=== PATIENT | female | born 1995 | race African-American/Black ===

== ENCOUNTER 2018-05-19 09:11 | Outpatient (CLI) | payer OTHER ==
--- NOTE | 2018-05-19 11:55 | ULT ---
ULTRASOUND OBSTETRICAL COMPLETE: DATE: 05-19-18 HISTORY: Z34.82 - encounter for supervision of other normal in 2nd trimester. Complete anatomy, s izes, and dates, cervical length. 22-year-old female FINDINGS: number: Garcia lie: Transverse with head to maternal left. Maternal cervix: 4.5 cm in length, closed. Placenta: Anterior. No placenta previa. Amniotic fluid volume: 11.5 cm heart rate: 146 bpm The following anatomy is visualized, with no evidence of anomalies: Head, lateral ventricles, cerebellum, nose and lips, spine, upper limbs, lower limbs, four chamber he art, umbilical cord, cord insertion, stomach, kidneys, and bladder. biometry: Head circumference (HC): 17.6 cm 20 w 1 d Biparietal diameter (BPD): 4.5 cm 19 w 5 d Abdominal circumference (AC): 15.8 cm 21 w 0 d Femur length (FL): 3.4 cm 20 w 4 d Average ultrasound age (AUA): 20 w 3 d Estimated date of delivery (MARISSA): 10-03-2018 Last menstrual period (LMP): 12-22-2017 Gestational age by LMP: 21 w 1 d Estimated weight (EFW): 368 g +/- 54 g (0 lb. 13 oz. +/- 2 oz.) IMPRESSION: 1. Live 2nd trimester intrauterine gestation. 2. Estimated gestational age of 20 weeks, 3 days. 3. Transverse lie. 4. No anatomical abnormalities. 5. Cervical length 4.5 cm. jn POS: [facility]
== END 2018-05-19 09:12 | disposition home or self-care (01) ==
LOC: BICULT 09:11
PROVIDERS: ATTEND Family Medicine
DX: Z34.82 Encounter for supervision of other normal pregnancy, second trimester (principal); Z3A.20 20 weeks gestation of pregnancy; O32.2XX0 Maternal care for transverse and oblique lie, not applicable or unspecified
CPT/HCPCS: 76805

== ENCOUNTER 2018-08-25 22:48 | Day surgery (SDC) | payer OTHER ==
[2018-08-25 23:21] VITALS: BMI 28.5
--- NOTE | 2018-08-26 00:47 | PRG ---
DATE OF SERVICE: 08/25/2018 PRIMARY OB: Dr. Silvestre Pearson. CHIEF COMPLAINT: Decreased movement. HISTORY OF PRESENT ILLNESS: The patient is a 23-year-old, G2, P1 female with an intrauterine at 35 weeks and a day, who is followed by Dr. Pearson in [place] and has presented for decreased movement today. The patient reports that she was recently diagnosed with gestational diabetes about a week ago and has been thus far diet controlled. She reports fasting blood sugar checked twice since the diagnosis, one at 126 and the other one at 188. She also reports her postprandials being in the 60s. The patient reports that she has been feeling her baby move much less than usual today and came in for evaluation. The patient denies any recent illness, fever, fall, headache, chest pain, or significant shortness of breath other than what she has attributed to the . Denies nausea, vomiting, diarrhea, constipation, hip problems, knee problems, or muscle weakness. Denies vaginal bleeding or leakage of fluid or uterine contractions. She denies urinary urgency or frequency. Denies hip problems, knee problems, or muscle weakness. PAST MEDICAL HISTORY: Anemia. PAST SURGICAL HISTORY: She has had her tonsils and adenoids removed. ALLERGIES: NO KNOWN DRUG ALLERGIES. MEDICATIONS: vitamins and iron. SOCIAL HISTORY: Denies drug, alcohol, or tobacco use. REVIEW OF SYSTEMS: Per HPI. OB LABORATORY DATA: Unavailable at time of dictation. PHYSICAL EXAMINATION: VITAL SIGNS: Blood pressure 100/59, pulse of 101, respiratory rate 18, saturating 98% on room air, temperature 98.4. GENERAL: She appears to be in no acute distress. She is alert, oriented, cooperative, and pleasant to interact with. HEENT: Head is normocephalic, atraumatic. LUNGS: Clear to auscultation bilaterally. HEART: Has regular rate and rhythm. ABDOMEN: Gravid, soft, nontender to palpation. EXTREMITIES: Nontender with 1+ edema bilaterally and symmetrical. : Has been deferred. LABORATORY DATA: heart tracing shows a baseline in the 140s with moderate long-term variability. Positive accelerations. No decelerations. Tocometer is not showing any significant contractions. ASSESSMENT AND PLAN: The patient is a 23-year-old G2, P1 female with an intrauterine at 35 weeks and a day, here for decreased movement. Fetus is reactive NST and category 1 tracing. Reassurance has been given to the patient. The patient is being discharged to home with instructions to follow up with her primary OB next Thursday as scheduled. Job ID: [id number]
== END 2018-08-25 23:40 | disposition home or self-care (01) ==
LOC: L&D/OP 22:48
PROVIDERS: ATTEND Family Medicine
DX: O36.8130 Decreased fetal movements, third trimester, not applicable or unspecified (principal); O24.410 Gestational diabetes mellitus in pregnancy, diet controlled; O99.013 Anemia complicating pregnancy, third trimester; D64.9 Anemia, unspecified; Z3A.35 35 weeks gestation of pregnancy
CPT/HCPCS: 99281

== ENCOUNTER 2018-09-15 00:09 | Inpatient (IN) | payer OTHER ==
[2018-09-15 00:40] VITALS: BMI 27.9
[2018-09-15] MEDS ORDERED: hydrALAZINE 20 MG/ML VIAL SLOW IVP PRN ×2 (02:58→12:16)
[2018-09-15] MEDS ORDERED: Acetaminophen 500 MG TAB PO PRN (02:58)
[2018-09-15] MEDS ORDERED: Ondansetron PF 4 MG/2 ML Vial IVP PRN ×4 (02:58→12:46)
[2018-09-15] MEDS ORDERED: Promethazine HCl 25 MG/ML VIAL IM PRN ×4 (02:58→12:46)
[2018-09-15] MEDS ORDERED: Misoprostol 200 MCG TAB RC PRN (03:00)
[2018-09-15] MEDS ORDERED: Carboprost 250 MCG/ML AMP IM PRN (03:00)
[2018-09-15] MEDS ORDERED: NS w/ Oxytocin 10 units 500 ML IV SCH ×2 (03:00)
[2018-09-15] MEDS ORDERED: Methylergonovine 0.2 MG/ML VIAL IM PRN (03:00)
[2018-09-15] MEDS ORDERED: Ibuprofen 800 MG TAB PO PRN (03:00)
[2018-09-15] MEDS ORDERED: NS / Oxytocin 40 units/1000ml 1,000 ML IV SCH ×2 (03:00→12:16)
[2018-09-15] MEDS ORDERED: HYDROcodone/Acetaminophen 5/325 mg Tablet PO PRN ×4 (03:00→12:16)
[2018-09-15] MEDS: Butorphanol Tartrate 1 MG/ML VIAL SLOW IVP PRN ×2 (03:14→05:34)
[2018-09-15 07:07] LABS: Hemoglobin 8.8 g/dL (12.0-16.0); Mean Corpuscular HGB CONC 32.3 g/dL (32.0-36.0); Mean Corpuscular Hemoglobin 24.3 pg (27.0-31.0); Mean Corpuscular Volume 75.2 fL (78.0-98.0); Mean Platelet Volume 10.7 fL (7.4-10.4); Platelet Count 187 thou/uL (130-400); RBC Distribution Width 15.4 % (11.5-14.5); Red Blood Cell (RBC) Count 3.62 mill/uL (4.20-5.40); White Blood Cell (WBC) Count 12.1 thou/uL (4.8-10.8)
[2018-09-15] MEDS ORDERED: Fentanyl 4 mcg/Bup 0.1% Cadd 100 ML ONE (07:23)
[2018-09-15] MEDS ORDERED: Lidocaine 1.5%/Epinephrine 1:200,000 5 ML AMPUL IJ ONE (07:36)
[2018-09-15] MEDS: Lactated Ringer's 1,000 ML IV SCH ×2 (07:45→12:15)
[2018-09-15 07:51] LABS: HBSAg Index 0.26 S/CO (0-0.99); HIV (1/2) Antibody/Antigen Non-Reactive (NonReactive); HIV 1/2 INDEX 0.14 S/CO (<1.00); Hep B Surf Ag Non-Reactive S/CO (NonReactive); Syphilis Antibody Nonreactive (Nonreactive); Syphilis Antibody Index 0.02 S/CO (<1.00 Non-Reactive)
[2018-09-15] MEDS ORDERED: Bupivacaine 0.25% HCL 30 ML VIAL ONE (09:00)
[2018-09-15] MEDS ORDERED: Lidocaine 2% MPF 10 ML AMP (For Epidural Use) ONE (09:00)
[2018-09-15] MEDS ORDERED: Lidocaine 1% (PF) 30 ML VIAL ONE (10:35)
[2018-09-15] MEDS ORDERED: diphenhydrAMINE 25 MG CAP PO PRN (12:16)
[2018-09-15] MEDS ORDERED: Bisacodyl 10 MG SUPP PR PRN (12:16)
[2018-09-15] MEDS ORDERED: Benzocaine-Menthol 82.5 ML CAN TOP PRN (12:16)
[2018-09-15] MEDS ORDERED: Milk Of Magnesia 30 ML UDCUP PO PRN (12:16)
[2018-09-15] MEDS ORDERED: Lanolin Ointment 7 GM TUBE TOP PRN (12:16)
[2018-09-15] MEDS ORDERED: Adacel (T-DAP) 0.5 ML SYRINGE IM ONE (12:16)
[2018-09-15] MEDS ORDERED: Lactated Ringer's 500 ML IV PRN (12:46)
[2018-09-15] MEDS ORDERED: diphenhydrAMINE 50 MG/ML VIAL IVP PRN ×2 (12:46)
[2018-09-15] MEDS ORDERED: Promethazine HCl 25 MG SUPP PR PRN (12:46)
[2018-09-15] MEDS ORDERED: Naloxone HCl 0.4 mg/ml Vial IVP PRN ×4 (12:46)
[2018-09-15] MEDS ORDERED: ePHEDrine/0.9% NaCl/PF SYRINGE 50 mg/10 ml SLOW IVP PRN (12:46)
[2018-09-15] MEDS ORDERED: Ketorolac Tromethamine 30 MG/ML VIAL IVP PRN (12:46)
[2018-09-15] MEDS ORDERED: Naloxone HCl 0.4 mg/ml Vial IV PRN (12:46)
[2018-09-15] MEDS ORDERED: Acetaminophen 325 MG TAB PO PRN (12:46)
[2018-09-15] MEDS ORDERED: Communication Order-Pharmacy FS SCH ×2 (13:00)
[2018-09-15] MEDS ORDERED: Fentanyl 4 mcg/Bupivacaine 0.1% Cassette 100 ML EPIDURAL SCH (13:00)
[2018-09-15] MEDS: Ibuprofen 800 MG TAB PO SCH ×2 (15:23→17:51)
[2018-09-15] MEDS: Ferrous Sulfate 325 MG TAB PO SCH (16:52)
[2018-09-15] MEDS: Docusate Calcium (SURFAK) 240 MG CAP PO SCH (21:00)
[2018-09-16 06:22] LABS: Hemoglobin 9.1 g/dL (12.0-16.0)
[2018-09-16] MEDS: Ibuprofen 800 MG TAB PO SCH ×2 (06:27→09:28)
[2018-09-16 08:18] VITALS: BP 110/60; TEMP 98
[2018-09-16] MEDS ORDERED: Prenatal Vitamin 1 TAB PO SCH (09:00)
[2018-09-16] MEDS: Ferrous Sulfate 325 MG TAB PO SCH (09:22)
[2018-09-16] MEDS: Docusate Calcium (SURFAK) 240 MG CAP PO SCH (09:22)
[2018-09-16] MEDS ORDERED: HYDROcodone/Acetaminophen 5/325 mg Tablet PO PRN ×2 (11:26)
== END 2018-09-16 14:00 | disposition home or self-care (01) | DRG 807 ==
LOC: L&D/OP 00:09 → L&D 02:23 → 3SW 13:11
PROVIDERS: ADMIT Family Medicine; ATTEND Family Medicine
PROC: 10907ZC Drainage of Amniotic Fluid, Therapeutic from Products of Conception, Via Natural or Artificial Opening (ICD-10-PCS; principal; 2018-09-15)
PROC: 10E0XZZ Delivery of Products of Conception, External Approach (ICD-10-PCS; 2018-09-15)
DX: O24.420 Gestational diabetes mellitus in childbirth, diet controlled (principal); Z37.0 Single live birth; O71.82 Other specified trauma to perineum and vulva; Z3A.38 38 weeks gestation of pregnancy
CPT/HCPCS: 36415; 51702; 85014; 85018; 85027; 86780; 86850; 86900; 86901; 87340; 87389; 90715; 99285; J0595; J2001; J2405; J3490; Q0163; S0020

== ENCOUNTER 2019-05-10 09:40 | Outpatient (CLI) | payer OTHER ==
--- NOTE | 2019-05-10 10:37 | ULT ---
Complete obstetrical ultrasound INDICATION: Evaluate anatomy TECHNIQUE: Grayscale, M-mode Doppler and Doppler images were obtained of the abdomen and pelvis to ev aluate the patient's known . COMPARISON: None. FINDINGS: Number of gestations: Single. Presentation: Breech. Placental location: Posterior Previa: There is no evidence for previa. The posterior placenta terminates approximately 2.2 cm from the level of the internal os. Cervical length: 4.4 cm NADER: 11.20 cm. heart rate: 160 bpm. Biparietal diameter: 4.62cm, 20 weeks 0 days, Not calculated.. Head circumference: 17.81 cm, 20 weeks 2 days, Not calculated. Abdominal circumference: 14.88 cm, 20 weeks 1 day, Not calculated. Femoral length: 3.20cm, 20 weeks 0 days, Not calculated. Estimated weight: 331 g +/- 48g 0 lbs. 12 oz. +/- 2 ounces, 41st percentile SURVEY: head: Normal appearing. Cerebellum: Normal appearing. Cisterna magna: Normal appearing. Lateral ventricles: Normal appearing. 4 chamber heart: Normal appearing.. Stomach: Normal appearing. Kidneys: Normal appearing. Cord insertion: Normal appearing. Bladder: Normal appearing. Spine: Normal appearing. Lips and nose: Normal appearing. Extremities: Normal appearing. Three-vessel CORD: Normal appearing. The average gestational age by ultrasound is 20 weeks 1 daywith estimated due date of September 26, 2019. The estimated dates by clinical data is 20 weeks 1 daywith estimated due date of September 26, 2019. IMPRESSION: 1. Single live intrauterine gestation with size and dates as above.
== END 2019-05-10 09:41 | disposition home or self-care (01) ==
LOC: BICULT 09:40
PROVIDERS: ATTEND Family Medicine
DX: O09.892 Supervision of other high risk pregnancies, second trimester (principal); Z3A.20 20 weeks gestation of pregnancy
CPT/HCPCS: 76805

== ENCOUNTER 2019-09-05 03:03 | Day surgery (SDC) | payer OTHER ==
[2019-09-05 03:25] VITALS: BMI 29.9
[2019-09-05] MEDS ORDERED: hydrALAZINE 20 MG/ML VIAL SLOW IVP PRN (03:45)
--- NOTE | 2019-09-05 03:49 | PDOC.LDHP ---
Labor and Delivery H&P HPI: Pt of Dr Herndon 24 yo sent from [facility] ED for monitoring for possible CTX. No LOF, no VB, thought to be 2cm at other location. Good FM now. Review of Systems: complete ROS performed and negative as per HPI Current gestational age (weeks): 37 Dating criteria: last menstrual period Grav: 3 Para: 2 OB History Details: x 2 Current complications: gestational diabetes (A1DM) Abnormal US findings: No Current medications: pre-williams vitamins Previous surgical history: other (Tonsils removed) Allergies/Adverse Reactions: Allergies Allergy/AdvReac Type Severity Reaction Status Date / Time No Known Allergies Allergy Verified 09/05/19 03:26 Social history: none - Physical Exam Vital signs reviewed and normal: yes (111/65 Afebrile) General: NAD Abdomen: gravid FHT: category 1 [place] contractions every: rare - Vaginal Exam cm dilated: 0 Effacement: 25% Station: -2 - Assessment Lionel Osborn CTX at 37 weeks. Good FM heard on doppler (NST). NST reactive - Plan Plan: observation in L&D (Reassurrance given. BPs wnl. I am at bedside now. DStick was 80s at fallon)
--- NOTE | 2019-09-05 03:57 | PDOC.BPN ---
- Brief Progress Note Zofran ordered for mild nausea, no emesis. Pt clinically well.
[2019-09-05] MEDS ORDERED: Ondansetron ODT 8 MG TAB PO SCH (04:00)
== END 2019-09-05 04:17 | disposition home or self-care (01) ==
LOC: L&D/OP 03:03
PROVIDERS: ATTEND Family Medicine
DX: O47.1 False labor at or after 37 completed weeks of gestation (principal); O24.410 Gestational diabetes mellitus in pregnancy, diet controlled; Z3A.37 37 weeks gestation of pregnancy
CPT/HCPCS: 99282; Q0162